=== PATIENT | male | born 1950 | race Two or more races ===

== ENCOUNTER 2023-04-01 09:53 | Inpatient (IN) | payer OTHER ==
[~2023-04-01] VITALS: Ht 177.8 cm; Wt 108.9 kg
[~2023-04-01 09:53] MED LIST: ALPHAGAN P5 M1 OP; AMIODARONE HCL200 MG NGT; AMIODARONE HCL200 MG PO; AZOPT5 ML OP; CEFADROXIL500 MG PO; ELIQUIS5 MG PO; GABAPENTIN300 MG PO; HIGH POTENCY I134 MG PO; HUMLOG PO; LOSARTAN PO; LUMIGAN2.5 M1 OP; NORVASC2.5 M1 PO; PERCOCET 5/3251 TAB PO; TAMS0.4C PO; ZANTAC150 MG PO
[2023-04-01] MEDS ORDERED: BAYER THERAPY325 MG PO (11:07)
[2023-04-01] MEDS ORDERED: GLIMEPIRIDE1 M1 PO (11:07)
[2023-04-01] MEDS ORDERED: ZETIA10 MG PO (11:07)
[2023-04-01] MEDS ORDERED: PEPCID20 MG PO (11:07)
[2023-04-01] MEDS ORDERED: PROSCAR5 MG PO (11:08)
[2023-04-07] MEDS ORDERED: ELIQUIS2.5 MG PO (07:43)
[2023-04-07] MEDS ORDERED: PERCOCET 5-3251 EACH PO (07:43)
[2023-04-07] MEDS ORDERED: DUI500 PO (07:43)
[2023-04-08] MEDS ORDERED: PERCOCET 5-3251 EACH PO (16:54)
[2023-04-08] MEDS ORDERED: ELIQUIS2.5 MG PO (17:30)
== END 2023-04-08 21:31 | disposition short-term general hospital, planned readmission (82) | DRG 470 ==
LOC: SURH 04-06 05:12 → O/R 04-06 05:12 → SURG 04-06 11:15 → SURH 04-06 11:33 → SURG 04-06 12:30 → SURH 04-08 21:31
PROVIDERS: ADMIT Orthopaedic Surgery; ATTEND Orthopaedic Surgery
PROC: 0SRC0J9 Replacement of Right Knee Joint with Synthetic Substitute, Cemented, Open Approach (ICD-10-PCS; principal; 2023-04-06 12:30)
DX: M17.11 Unilateral primary osteoarthritis, right knee (principal); M22.11 Recurrent subluxation of patella, right knee; E66.9 Obesity, unspecified